=== PATIENT | male | born 1975 | race Caucasian/White ===

== ENCOUNTER 2021-04-20 20:09 | Emergency (ER) | payer SELFPAY ==
[~2021-04-20] VITALS: Ht 167.6 cm; Wt 69.9 kg
[2021-04-20 20:18] VITALS: BP 126/85
== END 2021-04-20 21:24 | disposition left against medical advice (07) ==
LOC: M ED 20:09
DX: Z53.21 Procedure and treatment not carried out due to patient leaving prior to being seen by health care provider (principal)

== ENCOUNTER 2021-09-04 08:32 | Day surgery (SDC) | payer OTHER ==
[~2021-09-04] VITALS: Ht 167.6 cm; Wt 71.1 kg
[~2021-09-04 08:32] MED LIST: NS 1,000 ML IV ONE
[2021-09-04] MEDS ORDERED: LIDOCAINE 2% MDV 20ML VIAL As Ordered ONE (10:46)
[2021-09-04] MEDS ORDERED: propofoL 200 MG/20 ML VIAL As Ordered ONE (10:46)
[2021-09-04 11:55] VITALS: BP 102/64
== END 2021-09-04 12:02 | disposition home or self-care (01) ==
LOC: M OPP 08:32
PROVIDERS: ATTEND Internal Medicine Gastroenterology
DX: Z12.11 Encounter for screening for malignant neoplasm of colon (principal); K64.8 Other hemorrhoids; F17.210 Nicotine dependence, cigarettes, uncomplicated

== ENCOUNTER → 2024-01-13 | Outpatient (CLI) | payer OTHER | LOC: M SOG 07:59 | PROVIDERS: ATTEND Physician Assistant | DX: M25.532 Pain in left wrist (principal); Z53.9 Procedure and treatment not carried out, unspecified reason ==

== ENCOUNTER → 2024-01-14 | Outpatient (CLI) | payer OTHER | LOC: M SOG 07:54 | PROVIDERS: ATTEND Physician Assistant | DX: M25.532 Pain in left wrist (principal); M19.032 Primary osteoarthritis, left wrist ==